=== PATIENT | female | born 1990 | race Caucasian/White ===

== ENCOUNTER 2021-08-07 11:05 | Emergency (ER) | payer OTHER ==
[~2021-08-07] VITALS: Ht 180.3 cm; Wt 55.8 kg
--- NOTE | 2021-08-07 11:34 | NUR ---
BIB SELF C/O [facility]IN [facility]. CASSIE SUAREZ. PT A/OX4. AMBULATORY. TOLERATING R/A WELL
[2021-08-07] MEDS ORDERED: LIDOCAINE 1% INJ 50 ML MDV IJ ONE ×2 (11:38→12:00)
[2021-08-07] MEDS ORDERED: TDAP [DIPH/PERTUSSIS/TET] 0.5 ML VIAL IM ONE ×2 (11:42→12:00)
--- NOTE | 2021-08-07 11:45 | NUR ---
AT PT'S BEDSIDE
[2021-08-07] MEDS ORDERED: BACITRACIN ZINC OINT PACKET 1 EA PACKET TP ONE (12:00)
[2021-08-07] MEDS ORDERED: IBUP-1955 PO (12:42)
[2021-08-07 12:50] VITALS: BP 116/75
--- NOTE | 2021-08-07 12:50 | NUR ---
Patient discharged to home in stable condition. Written and verbal after care instructions given. Patient verbalizes understanding of instruction.
== END 2021-08-07 12:50 | disposition home or self-care (01) ==
LOC: ER 11:16
DX: S01.81XA Laceration without foreign body of other part of head, initial encounter (principal); F90.9 Attention-deficit hyperactivity disorder, unspecified type; W01.0XXA Fall on same level from slipping, tripping and stumbling without subsequent striking against object, initial encounter; Y93.89 Activity, other specified; Y92.89 Other specified places as the place of occurrence of the external cause; Y99.8 Other external cause status
CPT/HCPCS: 12013; 90471; 90715; 99283; J3490